=== PATIENT | female | born 1955 | race Caucasian/White ===

== ENCOUNTER 2018-10-19 08:16 | Day surgery (SDC) | payer OTHER ==
[~2018-10-19 08:16] MED LIST: CEFAZOLIN 2 GM/50 ML (PMX) 50 ML IVPB; LIDOCAINE 2% (SDV) 5 ML INJ; SOD CHLORIDE 0.9% 1,000 ML IV
[2018-10-19] MEDS: BUPIVACAINE 0.25% (MPF) 30 ML INJ (09:50)
[2018-10-19] MEDS ORDERED: PROPOFOL 20 ML (10:05)
[2018-10-19] MEDS ORDERED: CEFAZOLIN 1 GM INJ (10:12)
[2018-10-19] MEDS ORDERED: ROCURONIUM 50 MG INJ (10:12)
[2018-10-19] MEDS ORDERED: DEXAMETHASONE 4 MG/ML 5 ML INJ (10:24)
[2018-10-19] MEDS ORDERED: ONDANSETRON 4 MG INJ ×2 (10:24→11:08)
[2018-10-19] MEDS ORDERED: SUGAMMADEX SODIUM 200 MG/2 ML VIAL IV (10:52)
[2018-10-19] MEDS ORDERED: MEPERIDINE 25 MG INJ (11:07)
[2018-10-19] MEDS ORDERED: HYDROmorphONE 1 MG/5 ML IV SYRINGE IV ×2 (11:07→11:30)
[2018-10-19] MEDS: HYDROmorphONE 1 MG/5 ML IV SYRINGE IV ×2 (11:15→11:20)
[2018-10-19] MEDS: ONDANSETRON 4 MG INJ IV (11:16)
[2018-10-19] MEDS: MEPERIDINE 25 MG INJ IV (11:19)
[2018-10-19] MEDS ORDERED: MIDAZOLAM 1 MG/ML 2 ML INJ IV (11:30)
[2018-10-19] MEDS ORDERED: OXYCODONE/ACETAMINOPHEN (5/325) TAB PO ×2 (11:30)
[2018-10-19] MEDS ORDERED: METOCLOPRAMIDE 10 MG INJ IV (11:30)
[2018-10-19] MEDS ORDERED: ALBUTEROL 0.083% (NEB) 2.5 MG/3 ML AMP HHN (11:30)
[2018-10-19] MEDS ORDERED: DIPHENHYDRAMINE 50 MG INJ IV (11:30)
[2018-10-19] MEDS ORDERED: hydrALAzine 20 MG INJ IV (11:30)
[2018-10-19] MEDS ORDERED: FENTAnyl 50 MCG/ML VIAL IV ×3 (11:30)
[2018-10-19] MEDS ORDERED: LABETALOL HCL 20MG INJ IV (11:30)
[2018-10-19] MEDS ORDERED: EPHEDrine SULFATE 50 MG/5 ML SYG IV (11:30)
[2018-10-19] MEDS: HYDROCODONE/APAP (5/325) TAB PO (11:32)
== END 2018-10-19 12:37 | disposition home or self-care (01) ==
LOC: SDS 08:16
DX: K80.20 Calculus of gallbladder without cholecystitis without obstruction (principal); E11.9 Type 2 diabetes mellitus without complications; I10 Essential (primary) hypertension; E78.5 Hyperlipidemia, unspecified; I25.10 Atherosclerotic heart disease of native coronary artery without angina pectoris; Z79.82 Long term (current) use of aspirin; Z79.4 Long term (current) use of insulin
CPT/HCPCS: 47562; 82962; 88304

== ENCOUNTER 2018-11-10 14:29 | Inpatient (IN) | payer OTHER ==
[2018-11-10 15:03] LABS: ADD MAN DIFF? NO
[2018-11-10 15:09] LABS: WHITE BLOOD COUNT 12.5 10^3/ul (4.8-10.8)
[2018-11-10 15:09] LABS: BASOPHILS % 0.3 % (0.0-2.0); EOSINOPHILS # 0.9 10^3/ul (0.0-0.5); EOSINOPHILS % 7.4 % (0.0-7.0); HEMATOCRIT 30.6 % (37.0-47.0); HEMOGLOBIN 9.4 g/dl (12.0-16.0); LYMPHOCYTES # 1.3 10^3/ul (0.8-2.9); LYMPHOCYTES % 10.6 % (15.0-51.0); MEAN CORPUSCULAR HEMOGLOBIN 31.1 pg (29.0-33.0); MEAN CORPUSCULAR HGB CONC 30.7 g/dl (32.0-37.0); MEAN CORPUSCULAR VOLUME 101.3 fl (82.0-101.0); MEAN PLATELET VOLUME 11.7 fl (7.4-10.4); MONOCYTE # 0.7 10^3/ul (0.3-0.9); MONOCYTES % 5.3 % (0.0-11.0); NEUTROPHIL # 9.5 10^3/ul (1.6-7.5); NEUTROPHILS % 75.8 % (39.0-77.0); PLATELET COUNT 401 10^3/UL (140-415); RED BLOOD COUNT 3.02 10^6/ul (4.20-5.40); RED CELL DISTRIBUTION WIDTH 13.2 % (11.5-14.5)
[2018-11-10 15:24] LABS: ANION GAP 12 (5-13); BLOOD UREA NITROGEN 78 mg/dl (7-20); CALCIUM 9.1 mg/dl (8.4-10.2); CARBON DIOXIDE 17 mmol/L (21-31); CHLORIDE 111 mmol/L (97-110); CREATININE 4.27 mg/dl (0.44-1.00); Estimated GFR 11 mL/min (>60); GLUCOSE 78 mg/dl (70-220); POTASSIUM 5.9 mmol/L (3.5-5.1); SODIUM 140 mmol/L (135-144)
[2018-11-10] MEDS ORDERED: ONDANSETRON 4 MG INJ IV ×2 (18:00→18:30)
[2018-11-10] MEDS ORDERED: ACETAMINOPHEN 325 MG TAB PO ×2 (18:00→18:30)
[2018-11-10] MEDS: SOD CHLORIDE 0.9% 1,000 ML IV (18:05)
[2018-11-10] MEDS: SODIUM POLYSTYRENE 15 GM KIT (POWDER + SORBITOL) PO (18:08)
[2018-11-10] MEDS: NA POLYST SULFON 15 GM/60 ML BTL PO (18:08)
[2018-11-10] MEDS ORDERED: NITROGLYCERIN (SL) 0.4 MG TAB SL (18:30)
[2018-11-10] MEDS ORDERED: MAGNESIUM HYDROXIDE 30ML CUP PO (18:30)
[2018-11-10] MEDS ORDERED: DOCUSATE SODIUM 100 MG CAP PO (18:30)
[2018-11-10] MEDS ORDERED: NACL 0.9% 3 ML SYG IV (18:30)
[2018-11-10] MEDS ORDERED: HYDROCODONE/APAP (5/325) TAB PO (18:30)
[2018-11-10 19:43] LABS: HEMOGLOBIN A1C 6.8 % (0-5.9)
[2018-11-10] MEDS ORDERED: DEXTROSE 50% 50 ML SYRINGE IV ×2 (20:00)
[2018-11-10] MEDS ORDERED: GLUCAGON 1 MG INJ IM (20:00)
[2018-11-10] MEDS ORDERED: GLUCOSE GEL 15 GRAM TUBE BUCCAL (20:00)
[2018-11-10] MEDS ORDERED: GLUCOSE GEL 15 GRAM TUBE PO ×2 (20:00)
[2018-11-10] MEDS: DEXTROSE 5%-0.45% NACL 1,000 ML IV (20:13)
[2018-11-10] MEDS: INSULIN ASPART [NOVOLOG] 3 ML PEN SC (21:00)
[2018-11-10] MEDS: CALCIUM CARBONATE 1.25 GM TAB PO (21:33)
[2018-11-10] MEDS: ATORVASTATIN 40 MG TAB PO (21:33)
[2018-11-10] MEDS: QUETIAPINE 100 MG TAB PO (21:34)
[2018-11-10] MEDS: METOPROLOL 25 MG TAB PO (21:34)
[2018-11-11] MEDS ORDERED: hydrALAzine 20 MG INJ IV
[2018-11-11 04:01] LABS: SODIUM,URINE RANDOM 63 mmol/L (30-90)
[2018-11-11 04:12] LABS: CREATININE,URINE RANDOM 73.32 mg/dl (20-320); PROTEIN/CREAT RATIO 0.83 RATIO
[2018-11-11] MEDS: LEVOTHYROXINE 75 MCG TAB PO (06:20)
[2018-11-11] MEDS: PANTOPRAZOLE (EC) 40 MG TAB PO (06:20)
[2018-11-11] MEDS: DEXTROSE 5%-0.45% NACL 1,000 ML IV ×2 (07:30→22:01)
[2018-11-11] MEDS: INSULIN ASPART [NOVOLOG] 3 ML PEN SC ×4 (08:00→21:00)
[2018-11-11] MEDS: CALCIUM CARBONATE 1.25 GM TAB PO ×2 (08:43→21:20)
[2018-11-11] MEDS: VENLAFAXINE (XR) 75 MG CAP PO (08:43)
[2018-11-11] MEDS: FENOFIBRATE 145 MG TAB PO (08:43)
[2018-11-11] MEDS: ASPIRIN 81 MG TAB PO (08:43)
[2018-11-11] MEDS: METOPROLOL 25 MG TAB PO ×2 (08:44→21:20)
[2018-11-11] MEDS: AMLODIPINE 10 MG TAB PO (08:44)
[2018-11-11] MEDS: LAMOTRIGINE 100 MG TAB PO (10:31)
[2018-11-11] MEDS: CHOLECALCIFEROL 2,000 UNIT CAP PO (10:31)
[2018-11-11 11:11] LABS: ADD MAN DIFF? NO
[2018-11-11 11:14] LABS: WHITE BLOOD COUNT 8.9 10^3/ul (4.8-10.8)
[2018-11-11 11:14] LABS: BASOPHILS % 0.2 % (0.0-2.0); EOSINOPHILS # 0.6 10^3/ul (0.0-0.5); EOSINOPHILS % 7.1 % (0.0-7.0); HEMATOCRIT 27.5 % (37.0-47.0); HEMOGLOBIN 8.5 g/dl (12.0-16.0); LYMPHOCYTES # 1.8 10^3/ul (0.8-2.9); LYMPHOCYTES % 20.5 % (15.0-51.0); MEAN CORPUSCULAR HEMOGLOBIN 30.7 pg (29.0-33.0); MEAN CORPUSCULAR HGB CONC 30.9 g/dl (32.0-37.0); MEAN CORPUSCULAR VOLUME 99.3 fl (82.0-101.0); MEAN PLATELET VOLUME 11.5 fl (7.4-10.4); MONOCYTE # 0.8 10^3/ul (0.3-0.9); MONOCYTES % 8.5 % (0.0-11.0); NEUTROPHIL # 5.6 10^3/ul (1.6-7.5); NEUTROPHILS % 63.2 % (39.0-77.0); PLATELET COUNT 353 10^3/UL (140-415); RED BLOOD COUNT 2.77 10^6/ul (4.20-5.40)
[2018-11-11 11:35] LABS: CREATINE KINASE 382 IU/L (23-200)
[2018-11-11 11:35] LABS: URIC ACID 6.9 mg/dl (3.1-7.9)
[2018-11-11 12:10] LABS: ALANINE AMINOTRANSFERASE 33 IU/L (13-69); ALBUMIN 3.7 g/dl (3.3-4.9); ALBUMIN/GLOBULIN RATIO 1.27; ALKALINE PHOSPHATASE 50 IU/L (42-121); ANION GAP 10 (5-13); ASPARTATE AMINO TRANSFERASE 45 IU/L (15-46); BILIRUBIN,INDIRECT 0.1 mg/dl (0-1.1); BILIRUBIN,TOTAL 0.1 mg/dl (0.2-1.3); BLOOD UREA NITROGEN 73 mg/dl (7-20); CALCIUM 8.8 mg/dl (8.4-10.2); CARBON DIOXIDE 21 mmol/L (21-31); CHLORIDE 112 mmol/L (97-110); CREATININE 3.87 mg/dl (0.44-1.00); Estimated GFR 12 mL/min (>60); GLUCOSE 99 mg/dl (70-220); MAGNESIUM 1.9 mg/dl (1.7-2.5); POTASSIUM 5.3 mmol/L (3.5-5.1); SODIUM 143 mmol/L (135-144); TOTAL PROTEIN 6.6 g/dl (6.1-8.1)
[2018-11-11] MEDS: ATORVASTATIN 40 MG TAB PO (21:20)
[2018-11-11] MEDS: QUETIAPINE 100 MG TAB PO (21:20)
[2018-11-12 05:01] LABS: ADD MAN DIFF? NO
[2018-11-12 05:06] LABS: WHITE BLOOD COUNT 8.7 10^3/ul (4.8-10.8)
[2018-11-12 05:06] LABS: BASOPHILS % 0.5 % (0.0-2.0); EOSINOPHILS % 10.9 % (0.0-7.0); HEMATOCRIT 27.1 % (37.0-47.0); HEMOGLOBIN 8.4 g/dl (12.0-16.0); LYMPHOCYTES # 2.4 10^3/ul (0.8-2.9); LYMPHOCYTES % 27.5 % (15.0-51.0); MEAN PLATELET VOLUME 11.8 fl (7.4-10.4); MONOCYTE # 0.7 10^3/ul (0.3-0.9); MONOCYTES % 8.3 % (0.0-11.0); NEUTROPHIL # 4.5 10^3/ul (1.6-7.5); NEUTROPHILS % 52.3 % (39.0-77.0); PLATELET COUNT 334 10^3/UL (140-415); RED BLOOD COUNT 2.71 10^6/ul (4.20-5.40)
[2018-11-12 05:18] LABS: ALBUMIN 3.6 g/dl (3.3-4.9); ANION GAP 9 (5-13); BLOOD UREA NITROGEN 67 mg/dl (7-20); CALCIUM 8.7 mg/dl (8.4-10.2); CARBON DIOXIDE 22 mmol/L (21-31); CHLORIDE 112 mmol/L (97-110); CREATININE 3.69 mg/dl (0.44-1.00); GLUCOSE 125 mg/dl (70-220); MAGNESIUM 1.9 mg/dl (1.7-2.5); PHOSPHORUS 4.4 mg/dl (2.5-4.9); POTASSIUM 4.7 mmol/L (3.5-5.1); SODIUM 143 mmol/L (135-144)
[2018-11-12] MEDS: LEVOTHYROXINE 75 MCG TAB PO (06:32)
[2018-11-12] MEDS: PANTOPRAZOLE (EC) 40 MG TAB PO (06:32)
[2018-11-12] MEDS: INSULIN ASPART [NOVOLOG] 3 ML PEN SC ×2 (07:50→13:22)
[2018-11-12] MEDS: FENOFIBRATE 145 MG TAB PO (09:54)
[2018-11-12] MEDS: VENLAFAXINE (XR) 75 MG CAP PO (09:56)
[2018-11-12] MEDS: CALCIUM CARBONATE 1.25 GM TAB PO (09:57)
[2018-11-12] MEDS: AMLODIPINE 10 MG TAB PO (09:57)
[2018-11-12] MEDS: LINAGLIPTIN 5 MG TABLET PO (09:57)
[2018-11-12] MEDS: ASPIRIN 81 MG TAB PO (09:57)
[2018-11-12] MEDS: METOPROLOL 25 MG TAB PO (09:58)
[2018-11-12] MEDS: CHOLECALCIFEROL 2,000 UNIT CAP PO (12:22)
[2018-11-12] MEDS: LAMOTRIGINE 100 MG TAB PO (12:36)
== END 2018-11-12 15:15 | disposition home or self-care (01) | DRG 683 ==
LOC: MS1 11-11 19:27 → E/R 14:29 → 6WM 17:46
PROVIDERS: Internal Medicine
DX: N17.9 Acute kidney failure, unspecified (principal); E87.2 Acidosis; E11.649 Type 2 diabetes mellitus with hypoglycemia without coma; E11.22 Type 2 diabetes mellitus with diabetic chronic kidney disease; I12.9 Hypertensive chronic kidney disease with stage 1 through stage 4 chronic kidney disease, or unspecified chronic kidney disease; N18.4 Chronic kidney disease, stage 4 (severe); I25.10 Atherosclerotic heart disease of native coronary artery without angina pectoris; E03.9 Hypothyroidism, unspecified; F17.200 Nicotine dependence, unspecified, uncomplicated; E11.21 Type 2 diabetes mellitus with diabetic nephropathy; D63.1 Anemia in chronic kidney disease; E78.00 Pure hypercholesterolemia, unspecified; E87.5 Hyperkalemia; Z95.1 Presence of aortocoronary bypass graft; Z79.4 Long term (current) use of insulin; Z79.82 Long term (current) use of aspirin; Z90.49 Acquired absence of other specified parts of digestive tract; Z83.3 Family history of diabetes mellitus
CPT/HCPCS: 36415; 76775; 80048; 80053; 80069; 81003; 82550; 82570; 82962; 83036; 83735; 84300; 84560; 85025; 89190; 93005; 93971; 97161; 99285-25